=== PATIENT | female | born 1960 | race Two or more races ===

== ENCOUNTER 2024-02-07 10:43 | Emergency (ER) | payer BC, OTHER ==
[~2024-02-07] VITALS: Ht 149.9 cm; Wt 52.6 kg
[~2024-02-07 10:43] MED LIST: GLU500 PO; NAPR250T1
[2024-02-07 11:06] VITALS: BP 194/68; PULSE 68; RESP 18; TEMP 96.8; O2SAT 97
[2024-02-07] MEDS: NIFEdipine 30 MG TABER PO ONE (11:37)
[2024-02-07 11:43] VITALS: BP 194/68; PULSE 68; RESP 18; TEMP 96.8; O2SAT 97
== END 2024-02-07 11:43 | disposition home or self-care (01) ==
LOC: MED 10:43
DX: I10 Essential (primary) hypertension (principal); E11.9 Type 2 diabetes mellitus without complications; E78.00 Pure hypercholesterolemia, unspecified; E78.5 Hyperlipidemia, unspecified; Z79.1 Long term (current) use of non-steroidal anti-inflammatories (NSAID); Z79.84 Long term (current) use of oral hypoglycemic drugs; Z88.0 Allergy status to penicillin
CPT/HCPCS: 82948; 99283